=== PATIENT | male | born 1990 | race Caucasian/White ===

== ENCOUNTER 2019-07-12 19:47 | Emergency (ER) | payer SELFPAY ==
[~2019-07-12] VITALS: Ht 185.4 cm; Wt 99.8 kg
[2019-07-12 20:00] VITALS: Ht 185.4 cm; Wt 99.8 kg
[2019-07-12 20:48] LABS: BASOPHIL % 1.7 % (0-2); PLATELET COUNT 250 x10^3mcL (130-400); RED CELL DISTRIBUTION WIDTH 12.4 % (11.5-14.5)
[2019-07-12 21:15] LABS: CALCIUM 8.8 mg/dL (8.5-10.1); CARBON DIOXIDE 29.9 mmol/L (21-32); CHLORIDE SERUM 103 mmol/L (98-107); CREATININE SERUM 0.9 mg/dL (0.7-1.3); GFR1 > 60 mL/min; GLUCOSE SERUM 109 mg/dL (74-106); SODIUM SERUM 140 mmol/L (136-145)
[2019-07-12 21:20] LABS: ALBUMIN 3.9 g/dL (3.4-5.0); ALKALINE PHOSPHATASE 115 U/L (46-116); ALT/SGPT 28 U/L (16-63); AST/SGOT 13 U/L (15-37); BILIRUBIN TOTAL 0.15 mg/dL (0.20-1.00); LIPASE 156 IU/L (73-393); MAGNESIUM 2.3 mg/dL (1.8-2.4); TOTAL PROTEIN, SERUM 7.3 g/dL (6.4-8.2)
[2019-07-12 22:40] VITALS: BP 152/84
== END 2019-07-12 22:40 | disposition home or self-care (01) ==
LOC: ED 19:47
PROVIDERS: Emergency Medicine
DX: F14.90 Cocaine use, unspecified, uncomplicated (principal); F17.200 Nicotine dependence, unspecified, uncomplicated; Z72.89 Other problems related to lifestyle; Z71.6 Tobacco abuse counseling
CPT/HCPCS: 36415; 99406